=== PATIENT | male | born 1975 | race Caucasian/White ===

== ENCOUNTER 2018-01-28 10:26 | Emergency (ER) | payer OTHER ==
--- OUTSIDE RECORDS SUMMARY | 2018-01-28 10:38 | XMS REPORT | Continuity of Care Document ---
:1975 External Reference #:[id number] Author Name Danish Dent N.P. 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 PayID: [id number] [place] [address] Advance Directives Description No Information Available Problems Date Description Provider Status Onset: 12/11/2011 Allergic rhinitis Kat Monroy M.D. Active Family History Date Family Member(s) Problem(s) Comments Children 1 First Daughter 5 First Daughter No Current Problems Siblings 3 First Brother 42 First Brother Unknown Second Brother healthy Second Brother 35 First Sister Age is Unknown First Sister Unknown Social History Type Date Description Comments Sex Unknown Marital Status Legal Status: Never Tobacco Use Start: Unknown End: Former Cigarette Smoker smoked in high school Unknown ETOH Use Denies alcohol use Tobacco Use Start: Unknown End: Patient is a former smoker Unknown Smoking Status Reviewed: 07/28/16 Patient is a former smoker Allergies, Adverse Reactions, Alerts Description No Known Drug Allergies Medications Medication Date Status Form Strength Qnty SIG Indications Ordering Provider Acetaminophen 12/21/ Active Tablets 500mg 180tab 2 tab by R50.9 Porfirio, 2018 s mouth Ahmad M., three M.D. times a day For Fever And Malaise Fluoxetine HCL 07/28/ Active Capsules 20mg 30caps take one Porfirio, 2016 capsule Ahmad M., by mouth M.D. every in the morning Amoxicillin/Clav 12/21/ Hx Tablets 875-125mg 28tabs 1 tab by J01.40 dylan Monroy 2017 - mouth Ahmad M., Potassium 01/04/ twice a M.D. 2017 day Cipro 11/27/ Hx Tablets 500mg 10tabs 1 tab by A09 Porfirio, 2016 - mouth Ahmad M., 12/02/ twice a M.D. 2016 day No Active 07/18/ Hx Unknown Medications 2016 - 2016 Amoxicillin 07/08/ Hx Capsules 500mg 30caps 1 by J20.9 Porfirio, 2016 - mouth Ahmaagustina MBritt, 07/18/ three M.D. 2016 times a day H66.93 J01.40 No Active 01/26/2016 - Hx Unknown Medications 07/08/2016 Amoxicillin 01/15/2016 - Hx Capsules 500mg 30caps 1 by mouth J20.9 Kat Monroy 01/26/2016 three times M., M.D. a day H66.93 J01.40 No Active 12/20/2015 - Hx Unknown Medications 01/15/2016 Amoxicillin 12/10/2015 - Hx Capsules 500mg 30caps 1 by mouth J01.8 Kat Monroy 12/20/2015 three times 0 M., M.D. a day H66.93 No Active 04/29/2015 - Hx Unknown Medications 12/10/2015 Gentamicin Sulfate 04/24/2015 - Hx Solution 0.3% 5ml 2 drop H10.31 Kat Monroy 04/29/2015 drops both M., M.D. eyes three times a day No Active 03/04/2015 - Hx Unknown Medications 04/24/2015 Azithromycin 02/27/2015 - Hx Tablets 250mg 1pack z sabas uad J01.40 Kat Monroy 03/04/2015 Arianna MBrittD. No Active 11/13/2014 - Hx Unknown Medications 02/27/2015 Amoxicillin 11/03/2014 - Hx Tablets 500mg 30tab 1 three 462 Porfirio, Ahrhys 11/13/2014 s times a M., M.D. day x10 day No Active 11/02/2014 - Hx Unknown Medications 11/03/2014 Tamiflu 04/28/2014 - Hx Capsules 75mg 10cap 1 [facility] 487.1 [facility] M. MBrittD. twice a day Azithromycin 04/28/2014 - Hx Tablets 250mg 1pack z sabas uad 466.0 [facility] MBritt MBrittD. 382.9 461.8 Oow 12/30/2013 - Hx Please excuse Mansoor 04/23/2014 Chandra from [employer], work on 12/29 [employer] and 12/30/2013 due to an illness. Thank you Cephalexin 07/13/2013 - Hx Capsules 500m 30ca 1 tab po tid 682. Porfirio, rhys 07/23/2013 g ps x10 days 6 M., M.D. Indomethacin 02/03/2013 - Hx Capsules 50mg 90ca 1 tab by mouth 719. Porfirio, rhys 03/23/2013 ps three times a 46 M., M.D. day Ibuprofen 01/27/2013 - Hx Tablets 800m 90ta 1 by mouth 719. Porfirio, rhys 02/03/2013 g bs three times a 46 M., M.D. day with food Loratadine 11/10/2012 - Hx Tablets 10mg 30ta 1 tab po qam 477. Porfirio, Lavernannikad 11/02/2014 bs 8 M., M.D. Fluticasone 11/10/2012 - Hx Suspension 50mc 1bot 1 spray to 477. Porfirio , rhys Propionate 03/23/2013 g/Ac tle each nostril 8 M., M.D. t qd Mucinex Maximum 11/10/2012 - Hx Tablets ER 1200 30ta 1 po bid 477. Porfirio, rhys Strength 04/23/2014 12HR mg bs 8 M., M.D. Amoxicillin 10/15/2012 - Hx Tablets 875m 20ta 1 tab po bid 382. Porfirio [facility] 10/25/2012 g bs x10 days 9 M., MBrittD. Mucinex Maximum 10/15/2012 - Hx Tablets ER 1200 1 po bid X5 477. Porfirio , [facility] Strength 11/02/2014 12HR mg Days 8 M., MBrittD. 478.19 461.8 No Active 06/02/2012 - Hx Unknown Medications 10/15/2012 Levaquin 05/17/2012 - Hx Tablets 500mg 10tabs 1 by mouth 466.0 Porfirio, [facility] 12/06/2012 10 d M., MBrittD. 382.9 461.8 Prednisone 05/17/2012 - Hx Tablets 20mg 8tabs 2 tab by 466.0 [facility] 12/02/2012 mouth M. MBrittDBritt daily 4 days No Active 04/09/2012 - Hx Unknown Medications 05/17/2012 Tobramycin 04/02/2012 - Hx Solution 0.3% 5ml 2 drops 372.30 [facility] Sulfate 04/09/2012 right eye MBritt MBrittDBritt three times a day Levaquin 03/02/2012 - Hx Tablets 500mg 10tabs 1 by mouth 382.9 Porfirio [facility] 03/12/2012 10 d M. MBrittD. 461.8 466.0 Prednisone 03/02/2012 - Hx Tablets 20mg 8tabs 2 tab by 466.0 [facility] 03/06/2012 mouth daily 4 M., M.D. days 477.8 461.8 Amoxicillin 01/22/2012 - Hx Capsules 500mg 30caps 1 three 461.8 [facility] 02/01/2012 times a day M., MBrittD. x 10 days 382.9 Amoxicillin 07/10/2011 - Hx Capsules 500mg 2 by mouth 382.9 [facility] 07/20/2011 10D M., MBrittD. Meloxicam - Hx Tablets 15mg Unknown 04/23/2014 Amoxicillin - Hx Tablets 875mg Unknown 04/23/2014 Immunizations CPT Code Status Date Vaccine Lot # [id number] Given 01/27/2013 Flu Vaccine [id number] Given 01/22/2012 Flu Vaccine [id number] Given 09/30/1999 Td 7 Years And Older Vital Signs Date Vital Result Comment 01/13/2018 2:26pm BP Systolic 120 mmHg BP Diastolic 78 mmHg Height 75 inches 6'3" Weight 208.00 lb BMI (Body Mass Index) 26.0 kg/m2 Heart Rate 100 /min Respiratory Rate 16 /min 12/21/2017 11:30am BP Systolic 122 mmHg BP Diastolic 78 mmHg Height 75 inches 6'3" Weight 208.00 lb BMI (Body Mass Index) 26.0 kg/m2 Heart Rate 98 /min Body Temperature 98.1 F Respiratory Rate 20 /min 12/16/2016 2:18pm BP Systolic 128 mmHg BP Diastolic 88 mmHg Height 75 inches 6'3" Weight 211.00 lb BMI (Body Mass Index) 26.4 kg/m2 Heart Rate 92 /min Body Temperature 97.1 F Respiratory Rate 18 /min 11/27/2016 2:32pm BP Systolic 124 mmHg BP Diastolic 78 mmHg Height 75 inches 6'3" Weight 211.00 lb BMI (Body Mass Index) 26.4 kg/m2 Heart Rate 97 /min Respiratory Rate 16 /min 07/28/2016 2:30pm BP Systolic 130 mmHg BP Diastolic 72 mmHg Height 75 inches 6'3" Weight 220.00 lb BMI (Body Mass Index) 27.5 kg/m2 Heart Rate 103 /min Respiratory Rate 18 /min 07/08/2016 2:03pm BP Systolic 140 mmHg BP Diastolic 90 mmHg Height 75 inches 6'3" Weight 219.00 lb BMI (Body Mass Index) 27.4 kg/m2 Heart Rate 95 /min Body Temperature 97.3 F Respiratory Rate 18 /min 01/15/2016 1:57pm BP Systolic 142 mmHg BP Diastolic 78 mmHg Height 75 inches 6'3" Weight 226.00 lb BMI (Body Mass Index) 28.2 kg/m2 Heart Rate 91 /min Respiratory Rate 20 /min 12/10/2015 3:57pm BP Systolic 130 mmHg BP Diastolic 68 mmHg Weight 230.00 lb Heart Rate 72 /min Respiratory Rate 16 /min 05/15/2015 2:58pm BP Systolic 133 mmHg BP Diastolic 94 mmHg Height 75 inches 6'3" Weight 225.00 lb BMI (Body Mass Index) 28.1 kg/m2 Heart Rate 91 /min Body Temperature 98.6 F Respiratory Rate 20 /min 04/24/2015 2:31pm BP Systolic 132 mmHg BP Diastolic 86 mmHg Height 75 inches 6'3" Weight 230.00 lb BMI (Body Mass Index) 28.7 kg/m2 Heart Rate 89 /min Body Temperature 97.2 F Respiratory Rate 18 /min 02/27/2015 11:08am BP Systolic 125 mmHg BP Diastolic 85 mmHg Height 75 inches 6'3" Weight 226.00 lb BMI (Body Mass Index) 28.2 kg/m2 Heart Rate 80 /min Body Temperature 97.0 F Respiratory Rate 18 /min 11/03/2014 11:28am BP Systolic 126 mmHg BP Diastolic 78 mmHg Height 75 inches 6'3" Weight 232.00 lb BMI (Body Mass Index) 29.0 kg/m2 Heart Rate 88 /min Body Temperature 98.9 F Respiratory Rate 20 /min 04/28/2014 2:09pm BP Systolic 132 mmHg BP Diastolic 80 mmHg Height 75 inches 6'3" Weight 208.00 lb BMI (Body Mass Index) 26.0 kg/m2 Heart Rate 104 /min Body Temperature 100.0 F Respiratory Rate 15 /min 01/02/2014 3:26pm BP Systolic 133 mmHg BP Diastolic 91 mmHg Height 75 inches 6'3" Weight 227.00 lb BMI (Body Mass Index) 28.4 kg/m2 Heart Rate 84 /min Respiratory Rate 18 /min 12/30/2013 1:48pm BP Systolic 131 mmHg BP Diastolic 88 mmHg Height 75 inches 6'3" Weight 228.00 lb BMI (Body Mass Index) 28.5 kg/m2 Heart Rate 91 /min Body Temperature 97.8 F Respiratory Rate 18 /min 07/27/2013 2:12pm BP Systolic 133 mmHg BP Diastolic 89 mmHg Height 75 inches 6'3" Weight 235.00 lb BMI (Body Mass Index) 29.4 kg/m2 Heart Rate 98 /min Respiratory Rate 18 /min 07/20/2013 2:33pm BP Systolic 134 mmHg BP Diastolic 85 mmHg Height 75 inches 6'3" Weight 237.00 lb BMI (Body Mass Index) 29.6 kg/m2 Heart Rate 98 /min Body Temperature 98.0 F Respiratory Rate 20 /min 07/13/2013 2:06pm BP Systolic 151 mmHg BP Diastolic 96 mmHg Height 75 inches 6'3" Weight 223.00 lb BMI (Body Mass Index) 27.9 kg/m2 Heart Rate 99 /min Body Temperature 98.1 F Respiratory Rate 18 /min 02/08/2013 2:28pm BP Systolic 138 mmHg BP Diastolic 96 mmHg Height 75 inches 6'3" Weight 230.00 lb BMI (Body Mass Index) 28.7 kg/m2 Heart Rate 71 /min Respiratory Rate 18 /min 02/03/2013 10:56am BP Systolic 123 mmHg BP Diastolic 85 mmHg Height 75 inches 6'3" Weight 230.00 lb BMI (Body Mass Index) 28.7 kg/m2 Heart Rate 78 /min Respiratory Rate 20 /min 01/27/2013 2:29pm BP Systolic 138 mmHg BP Diastolic 89 mmHg Height 75 inches 6'3" Weight 230.00 lb BMI (Body Mass Index) 28.7 kg/m2 Heart Rate 72 /min 01/24/2013 10:51am BP Systolic 135 mmHg BP Diastolic 83 mmHg Height 75 inches 6'3" Weight 239.00 lb BMI (Body Mass Index) 29.9 kg/m2 Heart Rate 79 /min Body Temperature 97.5 F Respiratory Rate 22 /min 11/26/2012 11:50am BP Systolic 130 mmHg BP Diastolic 98 mmHg Height 75 inches 6'3" Weight 236.00 lb BMI (Body Mass Index) 29.5 kg/m2 Heart Rate 79 /min Body Temperature 97.0 F Respiratory Rate 18 /min 11/10/2012 3:54pm BP Systolic 148 mmHg BP Diastolic 86 mmHg Height 75 inches 6'3" Weight 239.00 lb BMI (Body Mass Index) 29.9 kg/m2 Heart Rate 75 /min Body Temperature 97.5 F Respiratory Rate 20 /min 10/15/2012 2:32pm BP Systolic 140 mmHg BP Diastolic 86 mmHg Height 75 inches 6'3" Weight 230.00 lb BMI (Body Mass Index) 28.7 kg/m2 Heart Rate 98 /min Body Temperature 97.9 F Respiratory Rate 20 /min 05/17/2012 11:28am BP Systolic 120 mmHg BP Diastolic 90 mmHg Height 75 inches 6'3" Weight 227.00 lb BMI (Body Mass Index) 28.4 kg/m2 Heart Rate 82 /min Body Temperature 97.4 F Respiratory Rate 22 /min 04/02/2012 10:33am BP Systolic 140 mmHg BP Diastolic 70 mmHg Height 75 inches 6'3" Weight 228.00 lb BMI (Body Mass Index) 28.5 kg/m2 Heart Rate 84 /min Body Temperature 97.0 F Respiratory Rate 14 /min 03/02/2012 2:44pm BP Systolic 120 mmHg BP Diastolic 86 mmHg Height 75 inches 6'3" Weight 221.00 lb BMI (Body Mass Index) 27.6 kg/m2 Heart Rate 99 /min Body Temperature 98.0 F Respiratory Rate 16 /min 01/22/2012 4:37pm BP Systolic 120 mmHg BP Diastolic 76 mmHg Height 75 inches 6'3" Weight 221.00 lb BMI (Body Mass Index) 27.6 kg/m2 Heart Rate 81 /min Respiratory Rate 22 /min 07/10/2011 11:34am BP Systolic 133 mmHg BP Diastolic 88 mmHg Height 74 inches 6'2" Weight 226.00 lb BMI (Body Mass Index) 29.0 kg/m2 Heart Rate 78 /min Last Menstrual Period 0 Respiratory Rate 14 /min Results Test Date Facility Test Result H/L Range Note CBC W/Automated Diff 12/30/2013 [facility] W/Automated See Note 1 Diff Comprehensive Metabolic 12/30/2013 [place] [facility] Glucose 88 mg/dL 74-106 Panel BUN 14 mg/dL 7-18 Creatinine 0.8 mg/dL 0.6-1.3 Glom Filtration Rate, Estimate >60 mL/min >60 If >60 mL/min >60 2 BUN/Creat 17.5 ratio Sodium 140 mmol/L 136-145 Potassium 5.1 mmol/L 3.5-5.1 Chloride 105 mmol/L 98-107 Carbon Dioxide 27 mmol/L 21-32 Anion Gap 13 mEq/L 8-16 Calcium 9.4 mg/dL 8.5-10.1 Total Protein 7.0 g/dL 6.4-8.2 Albumin 4.2 g/dL 3.4-5.0 Globulin 2.8 g/dL 1.9-4.3 Alb/Glob 1.5 ratio Bilirubin,Total 0.6 mg/dL 0.2-1.0 Sgot/Ast 25 U/L 15-37 SGPT/Alt 51 U/L 12-78 Alkaline Phosphatase 97 U/L 45-117 Laboratory test finding 12/30/2013 [place] [facility] Lipase 101 U/L 73-393 3 Amylase 54 U/L 25-115 4 Laboratory test finding 12/30/2013 [place] [facility] C. Difficile Toxin A/B See Note 5 Ova + Parasite Antigen Screen See Note 6 1 BLOOD NO LONGER AVAILABLE. DRAWN 12/30/13 2 Note: Persistent reduction for 3 months or more in an eGFR <60 mL/min/1.73 m2 defines CKD. Patients with eGFR values >/=60 mL/min/1.73 m2 may also have CKD if evidence of persistent proteinuria is present. The original MDRD equation for estimated GFR is not valid for patients less than 18 years of age. Additional information may be found at www.kdoqi.org. 3 BLOOD REECIEVED W/NO REQ. REQ CAME 01/02/14 PM CAN NOT PROCESS [facility]. NO LONGER AVAILABLE 4 BLOOD REECIEVED W/NO REQ. REQ CAME 01/02/14 PM CAN NOT PROCESS [facility]. NO LONGER AVAILABLE 5 NO JONATHAN SENT ONLY BLOOD 6 NO JONATHAN SENT ONLY BLOOD Procedures Date Code Description Status 12/16/2016 99287 Tympanometry Completed 07/08/2016 96924 Spirometry Completed 07/08/2016 52955 Tympanometry Completed 01/15/2016 61897 Spirometry Completed 01/15/2016 87056 Tympanometry Completed 02/27/2015 81696 Spirometry Completed 02/27/2015 10971 Tympanometry Completed 04/28/2014 41555 Spirometry Completed 04/28/2014 02075 Tympanometry Completed 11/26/2012 78873 Spirometry Completed 11/26/2012 93114 Tympanometry Completed 11/10/2012 56928 Tympanometry Completed 10/15/2012 82555 Tympanometry Completed 05/17/2012 18225 Spirometry Completed 05/17/2012 26484 Tympanometry Completed 03/02/2012 09795 Spirometry Completed 03/02/2012 67749 Tympanometry Completed 01/22/2012 77091 Tympanometry Completed 07/10/2011 26166 Tympanometry Completed 05/31/2009 21571 Tympanometry Completed 02/08/2009 19946 Spirometry Completed 02/08/2009 15262 Tympanometry Completed 02/05/2009 06867 Tympanometry Completed 05/06/2007 86350 Tympanometry Completed Encounters Type Date Location Provider Dx Diagnosis Office Visit 01/13/2018 [facility] Danish Dent, S93.401A Sprain of 2:30p N.P. unspecified ligament of right ankle, init encntr M25.571 Pain in right ankle and joints of right foot Office Visit 12/21/2017 11:00a [facility] Danish Dent, J30.9 Allergic rhinitis, N.P. unspecified L20.9 Atopic dermatitis, unspecified F41.9 Anxiety disorder, unspecified F70 Mild intellectual disabilities R10.84 Generalized abdominal pain R53.83 Other fatigue H10.9 Unspecified conjunctivitis H66.93 Otitis media, unspecified, bilateral R05 Cough J20.9 Acute bronchitis, unspecified J02.9 Acute pharyngitis, unspecified J01.40 Acute pansinusitis, unspecified R06.02 Shortness of breath R50.9 Fever, unspecified Office Visit 12/16/2016 2:45p [facility] Kat Monroy J30.Maegan Allergic Arianna frank M.D. unspecified L20.9 Atopic dermatitis, unspecified F41.9 Anxiety disorder, unspecified F70 Mild intellectual disabilities R10.84 Generalized abdominal pain R11.0 Nausea R19.7 Diarrhea, unspecified A09 Infectious gastroenteritis and colitis, unspecified J02.9 Acute pharyngitis, unspecified J00 Acute nasopharyngitis [common cold] R53.83 Other fatigue R09.81 Nasal congestion H92.03 Otalgia, bilateral Office Visit 11/27/2016 2:45p [facility] Kat Monroy J30.Arianna Tejada M.D. unspecified L20.9 Atopic dermatitis, unspecified F41.9 Anxiety disorder, unspecified A09 Infectious gastroenteritis and colitis, unspecified R19.7 Diarrhea, unspecified R11.0 Nausea R10.84 Generalized abdominal pain F70 Mild intellectual disabilities Z00.01 Encounter for general adult medical exam w abnormal findings Office Visit 07/28/2016 2:00p [facility] Wei Abhijit F41.9 Anxiety disorder, [employer] unspecified Office Visit 07/08/2016 2:45p [facility] Kat Monroy30.Arianna Tejada M.D. unspecified L20.9 Atopic dermatitis, unspecified J20.9 Acute bronchitis, unspecified J01.40 Acute pansinusitis, unspecified H66.93 Otitis media, unspecified, bilateral R05 Cough R09.81 Nasal congestion R06.02 Shortness of breath Office Visit 01/15/2016 1:45p [facility] Porfirio, Ahrhys J20.9 Acute bronchitis, Arianna MBrittD. unspecified J01.40 Acute pansinusitis, unspecified H66.93 Otitis media, unspecified, bilateral R05 Cough R09.81 Nasal congestion R06.02 Shortness of breath J30.9 Allergic rhinitis, unspecified L20.9 Atopic dermatitis, unspecified Office Visit 12/10/2015 4:00p [facility] Abhijit Carvajal J30.9 Allergic rhinitis, [employer] unspecified J01.80 Other acute sinusitis H66.93 Otitis media, unspecified, bilateral R05 Cough R50.9 Fever, unspecified Office Visit 05/15/2015 2:45p [facility] Porfirio, Lavernrhys A09 Infectious Chanel Keller. gastroenteritis and colitis, unspecified R19.7 Diarrhea, unspecified R10.84 Generalized abdominal pain L20.9 Atopic dermatitis, unspecified J30.9 Allergic rhinitis, unspecified Office Visit 04/24/2015 2:30p [facility] Porfirio, Lavernrhys H10.31 Unspecified acute Chanel Keller. conjunctivitis, right eye J30.9 Allergic rhinitis, unspecified L20.9 Atopic dermatitis, unspecified R09.81 Nasal congestion Office Visit 02/27/2015 11:00a [facility] Porfirio Lavernrhys J02.9 Acute pharyngitis, Chanel Keller. unspecified R59.0 Localized enlarged lymph nodes J01.40 Acute pansinusitis, unspecified R05 Cough H66.93 Otitis media, unspecified, bilateral R53.83 Other fatigue J30.2 Other seasonal allergic rhinitis L20.9 Atopic dermatitis, unspecified R06.02 Shortness of breath R09.81 Nasal congestion Office Visit 11/03/2014 11:45a [facility] Abhijit Carvajal [employer] 462 Pharyngitis Acute 785.6 Lymph Nodes Enlargement 780.79 Malaise And Fatigue Other Office Visit 04/28/2014 2:00p [facility] Porfirio, Lavernrhys 487.1 Influenza W/ Other MArianna De La TorreD. Respiratory Manifestations 382.9 Otitis Media Unspec 461.8 Sinusitis Acute Other 466.0 Bronchitis Acute 786.2 Cough 786.05 Shortness Of Breath 478.19 Other Disease Of Nasal Cavity And Sinuses 780.79 Malaise And Fatigue Other 780.60 Fever, Unspecified 477.8 Rhinitis Allergic Due To Other Allergen 691.8 Dermatitis Atopic & Related Conditions Other Office Visit 01/02/2014 3:30p [facility] Lindsay Max, 789.07 Pain Abdominal [employer] Generalized 787.91 Diarrhea 787.02 Nausea Alone Office Visit 12/30/2013 1:45p [facility] Lindsay Max, 789.07 Pain Abdominal [employer] Generalized 787.91 Diarrhea 787.02 Nausea Alone Office Visit 07/27/2013 2:00p [facility] Meme Corona, 682.6 Cellulitis & [employer] Abscess Leg Except Foot 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 & Foot 727.1 Bunion 729.4 Fasciitis Unspec Office Visit 02/03/2013 10:15a [facility] Kat Monroy, 719.47 Pain Joint Ankle M.D. & Foot 727.1 Bunion 729.4 Fasciitis Unspec Office Visit 01/27/2013 2:15p [facility] Kat Monroy 719.47 Pain Joint Ankle M.D. & Foot 727.1 Bunion 729.4 Fasciitis Unspec 845.09 Sprains & Strains Ankle Other V04.81 Need For Prophylactic Vaccination & Inoculation/Influenza Office Visit 01/24/2013 10:45a [facility] Kat Monroy 719.47 Pain Joint Ankle M.D. & Foot 727.1 Bunion 729.4 Fasciitis Unspec 845.09 Sprains & Strains Ankle Other 782.9 Skin & Integumentary Tissue Other Symptoms Office Visit 11/26/2012 11:15a [facility] Porfirio Lavernrhys Keller, 466.0 Bronchitis Acute M.D. 786.05 Shortness Of Breath 786.2 Cough 462 Pharyngitis Acute 388.70 Otalgia & Earache Unspec 382.9 Otitis Media Unspec 461.8 Sinusitis Acute Other 478.19 Other Disease Of Nasal Cavity And Sinuses 780.79 Malaise And Fatigue Other 477.8 Rhinitis Allergic Due To Other Allergen Office Visit 11/10/2012 4:00p [facility] Meme Corona, 477.8 Rhinitis [employer] Allergic Due To Other Allergen 388.70 Otalgia & Earache Unspec 780.79 Malaise And Fatigue Other Office Visit 10/15/2012 2:30p [facility] Meem Corona, 382.9 Otitis Media [employer] Unspec 388.70 Otalgia & Earache Unspec 461.8 Sinusitis Acute Other 477.8 Rhinitis Allergic Due To Other Allergen 780.79 Malaise And Fatigue Other Office Visit 05/17/2012 11:15a [facility] Porfirio, Lavernrhys Keller, 466.0 Bronchitis Acute M.D. 786.05 Shortness Of Breath 786.2 Cough 382.9 Otitis Media Unspec 388.70 Otalgia & Earache Unspec 461.8 Sinusitis Acute Other 477.8 Rhinitis Allergic Due To Other Allergen 780.79 Malaise And Fatigue Other 462 Pharyngitis Acute Office Visit 04/02/2012 10:30a [facility] Kat Monroy 372.30 Conjunctivitis Unspec Janusz Keller 918.1 Injury Superficial Cornea 369.9 Visual Loss Unspec Office Visit 03/02/2012 2:30p [facility] Kat Monroy, 382.9 Otitis Media M.D. Unspec 388.70 Otalgia & Earache Unspec 461.8 Sinusitis Acute Other 477.8 Rhinitis Allergic Due To Other Allergen 466.0 Bronchitis Acute 786.05 Shortness Of Breath 786.2 Cough 780.79 Malaise And Fatigue Other Office Visit 01/22/2012 4:30p [facility] Kat Monroy, 382.9 Otitis Media M.D. Unspec 388.70 Otalgia & Earache Unspec 461.8 Sinusitis Acute Other 477.8 Rhinitis Allergic Due To Other Allergen 780.79 Malaise And Fatigue Other V04.81 Need For Prophylactic Vaccination & Inoculation/Influenza Office Visit 07/10/2011 11:30a [facility] Kat Monroy, 382.9 Otitis Media M.D. Unspec 388.70 Otalgia & Earache Unspec 477.8 Rhinitis Allergic Due To Other Allergen Office Visit 12/24/2010 11:45a [facility] Kat Monroy, 787.01 Nausea W/ M.D. Vomiting 009.1 Colitis Enteritis & Gastroenteritis Presumed Infectious Orig 780.79 Malaise And Fatigue Other 729.5 Pain In Limb Office Visit 12/04/2010 2:30p [facility] Abhijit Carvajal [employer] 382.9 Otitis Media Unspec 786.2 Cough 461.8 Sinusitis Acute Other 465.9 URI Upper Respiratory Infections Acute Unspec Sites Office Visit 05/31/2009 3:00p [facility] Kat Monroy, 388.70 Otalgia & Earache M.D. Unspec 382.9 Otitis Media Unspec 478.19 Other Disease Of Nasal Cavity And Sinuses 461.8 Sinusitis Acute Other Office Visit 02/08/2009 3:00p [facility] Kat Monroy 786.05 Shortness Of M., M.D. Breath 466.0 Bronchitis Acute 786.2 Cough 780.79 Malaise And Fatigue Other 381.04 Otitis Media Allergic Serous Acute Office Visit 02/05/2009 10:45a [facility] Kat Monroy, 388.70 Otalgia & Earache M.D. Unspec 382.9 Otitis Media Unspec 462 Pharyngitis Acute 461.8 Sinusitis Acute Other Plan of Treatment Future Appointment(s):01/27/2018 3:30 pm - Danish Dent, N.PBritt at [facility]01/13/2018 - Danish Dent N.P.S93.401A Sprain of unspecified ligament of right ankle, initial encouComments:EXERCISE/HEAT/MESSAGETYLENOL OR MOTRIN PRNACE WRAPM25.571 Pain in right ankle and joints of right footComments:EXERCISE /HEAT/MESSAGETYLENOL OR MOTRIN PRNACE WRAP PRN USE SHOES INSERTS/ CUSHION
--- NOTE | 2018-01-28 12:26 | UC ---
Lower Extremity/Ankle HPI - HPI Summary HPI Summary: 42-year-old male comes in with a chief complaint of right ankle and heel pain after an injury at work 2 weeks ago. Patient was moving a dumpster when he had sudden onset of pain in the right heel and ankle area. Activity and walking makes the pain worse rest makes the pain better. Takes ibuprofen which does help. No weakness or numbness no skin break. - History of Current Complaint Chief Complaint: UCLowerExtremity Stated Complaint: HEEL INJURY Time Seen by Provider: 01/28/18 12:17 Pain Intensity: 20 - Allergies/Home Medications Allergies/Adverse Reactions: Allergies Allergy/AdvReac Type Severity Reaction Status Date / Time No Known Allergies Allergy Verified 01/28/18 10:40 PMH/Surg Hx/FS Hx/Imm Hx Previously Healthy: Yes - Surgical History Surgical History: None - Family History Known Family History: Negative: Diabetes - Social History Alcohol Use: None Substance Use Type: None Smoking Status (MU): Never Smoked Tobacco Review of Systems All Other Systems Reviewed And Are Negative: Yes Constitutional: Positive: Negative Skin: Positive: Negative Eyes: Positive: Negative ENT: Positive: Negative Respiratory: Positive: Negative Cardiovascular: Positive: Negative Gastrointestinal: Positive: Negative Motor: Positive: Negative Neurovascular: Positive: Negative Musculoskeletal: Positive: Other: - SEE HPI Neurological: Positive: Negative Psychological: Positive: Negative Is Patient Immunocompromised?: No Physical Exam Triage Information Reviewed: Yes Appearance: Well-Appearing, No Pain Distress, Well-Nourished Vital Signs: Initial Vital Signs Temp 98 F 01/28/18 10:36 Pulse 82 01/28/18 10:36 Resp 16 01/28/18 10:36 BP 146/100 01/28/18 10:36 Pulse Ox 100 01/28/18 10:36 Eye Exam: Normal Eyes: Positive: Conjunctiva Clear Neck exam: Normal Neck: Positive: Supple Respiratory: Positive: No respiratory distress Musculoskeletal: Positive: Other: - Patient is tender to palpation in the ankle on the medial and lateral malleolus. Is also tender to palpation on the Achilles tendon and palpation of the heel to include the plantar aspect of the foot adjacent to the heel. Achilles tendon is intact to plantar and dorsi FLection. Normal capillary refill no sensation deficits is normal pulses. Neurological Exam: Normal Neurological: Positive: Alert, Muscle Tone Normal Psychological Exam: Normal Psychological: Positive: Normal Response To Family, Age Appropriate Behavior Skin Exam: Normal Lower Extremity Course/Dx - Course Course Of Treatment: Order Information: FOOT RIGHT 3+ VWS. Accession Number: [id number]. CPT: 96616. INDICATION: Right foot injury. TECHNIQUE: 3 views of the right foot were obtained. FINDINGS: The bones are in normal alignment. No fracture is seen. Joint spaces appear. maintained. IMPRESSION: NO EVIDENCE FOR FRACTURE. . < Electronically signed by Waldemar Felix MD in [facility]> 01/28/18 1249. Order Information: ANKLE RIGHT 3+VWS. Accession Number: [id number]. CPT: 64492. INDICATION: Right ankle injury. TECHNIQUE: 3 views of the right ankle were obtained. FINDINGS: The bones are in normal alignment. No fracture is seen. Joint spaces appear. maintained. There are spurs arising from the posterior and inferior aspect of the. calcaneus. IMPRESSION: NO EVIDENCE FOR FRACTURE. . <Electronically signed by Waldemar Felix MD in [facility]> 01/28/18 1246. Discussed the x-rays with the patient and his family. The worst pain is in the Achilles tendon. It's intact to exam but there may be a partial tear. Plan is an Maximo wrap and a cam walking boot and follow-up with orthopedics. When taken out of work she has he' s got very physical labor until he gets cleared by medical provider. Also do ice elevation and anti-inflammatories. - Differential Dx/Diagnosis Provider Diagnoses: RIGHT ANKLE/FOOT PAIN Discharge - Sign-Out/Discharge Documenting (check all that apply): Patient Departure All imaging exams completed and their final reports reviewed: Yes - Discharge Plan Condition: Stable Disposition: HOME Prescriptions: Ibuprofen TAB* [Motrin TAB* 600 MG] 600 mg PO Q6H PRN #30 tab PRN Reason: Pain Patient Education Materials: Achilles Tendinitis (ED), Ankle Sprain (ED), Foot Sprain (ED) Referrals: Kat Monroy MD [Primary Care Provider] - Blanquita Valdez MD [Medical Doctor] - Additional Instructions: FOLLOW UP WITH DR VALDEZ, ORTHOPEDICS. GET RECHECKED FOR ANY WORSENING OF YOUR CONDITION OR QUESTIONS OR CONCERNS. - Billing Disposition and Condition Condition: STABLE Disposition: Home
[2018-01-28 12:49] VITALS: BP 132/95
== END 2018-01-28 13:32 | disposition home or self-care (01) ==
LOC: UCEAST 10:26
DX: M25.571 Pain in right ankle and joints of right foot (principal)
CPT/HCPCS: 99212; G0463